=== PATIENT | female | born 2000 | race African-American/Black ===

== ENCOUNTER 2021-04-01 15:50 | Emergency (ER) | payer MEDICAID, OTHER ==
[~2021-04-01] VITALS: Ht 167.6 cm; Wt 95.0 kg
[2021-04-01 18:05] VITALS: BP 126/84
[2021-04-01 19:07] LABS: CHLORIDE 105 mEq/L (98-107)
[2021-04-01 19:08] LABS: BASOPHILS % 0.5 % (0.0-2.0); EOSINOPHILS % 0.9 % (0.0-5.0); HEMATOCRIT. 32.9 % (36.0-48.0); HEMOGLOBIN. 10.6 g/dL (12.0-16.0); LYMPHOCYTES % 21.2 % (20.0-50.0); MEAN CORPUSCULAR HEMOGLOBIN 23.8 pg (28.0-32.0); MEAN CORPUSCULAR VOLUME 74.2 fL (81.0-99.0); MEAN PLATELET VOLUME 9.5 fl (7.4-10.4); MONOCYTES % 8.2 % (2.0-8.0); NEUTROPHILS % 69.2 % (40.0-76.0); PLATELET 227 x1000/uL (130-400); RED BLOOD CELL COUNT 4.44 mill/uL (4.2-5.4); RED CELL DISTRIBUTION WIDTH 16.7 % (11.6-14.6)
[2021-04-01 19:31] LABS: B-HCG QUANTITATIVE 10892 mIU/mL (<3)
== END 2021-04-01 22:07 | disposition left against medical advice (07) ==
LOC: ER 15:50
DX: O20.9 Hemorrhage in early pregnancy, unspecified (principal); O26.891 Other specified pregnancy related conditions, first trimester; R10.30 Lower abdominal pain, unspecified; Z3A.01 Less than 8 weeks gestation of pregnancy
CPT/HCPCS: 36415; 76801; 80053; 81025; 84702; 85025; 86850; 86900; 99284

== ENCOUNTER 2021-06-11 23:22 | Emergency (ER) | payer MEDICAID ==
[~2021-06-11] VITALS: Ht 167.6 cm; Wt 92.6 kg
[2021-06-11] MEDS ORDERED: VISCOUS LIDOCAINE 2% 15 ML UDC PO STA (23:36)
[2021-06-11] MEDS ORDERED: MAGNESIUM/ALUMINUM HYDROXIDE/SIMETHICONE 30ML UDC PO STA (23:36)
[2021-06-12 00:56] LABS: BASOPHILS % 0.1 % (0.0-2.0); EOSINOPHILS % 1.4 % (0.0-5.0); HEMATOCRIT. 33.3 % (36.0-48.0); HEMOGLOBIN. 10.5 g/dL (12.0-16.0); LYMPHOCYTES % 14.7 % (20.0-50.0); MEAN CORPUSCULAR HEMOGLOBIN 23.6 pg (28.0-32.0); MEAN CORPUSCULAR VOLUME 74.8 fL (81.0-99.0); MEAN PLATELET VOLUME 9.9 fl (7.4-10.4); MONOCYTES % 6.5 % (2.0-8.0); NEUTROPHILS % 77.3 % (40.0-76.0); PLATELET 176 x1000/uL (130-400); RED BLOOD CELL COUNT 4.44 mill/uL (4.2-5.4); RED CELL DISTRIBUTION WIDTH 15.2 % (11.6-14.6)
[2021-06-12 01:02] LABS: CHLORIDE 107 mEq/L (98-107)
[2021-06-12 01:04] LABS: ETHANOL BLOOD < 10 mg/dL
[2021-06-12 01:17] LABS: CLARITY URINE CLOUDY (CLEAR); COLOR URINE YELLOW (YELLOW); KETONES URINE NEGATIVE (NEGATIVE); LEUKOCYTE ESTERASE URINE TRACE (NEGATIVE); NITRITE URINE NEGATIVE (NEGATIVE); OCCULT BLOOD URINE NEGATIVE (NEGATIVE); PH URINE 5.5 (4.5-8.0); PROTEIN URINE NEGATIVE (NEGATIVE); SPECIFIC GRAVITY URINE 1.007 (1.005-1.030); UROBILINOGEN URINE 0.2 E.U./dL (0.2-1.0)
[2021-06-12 01:28] LABS: B-HCG QUANTITATIVE 15007 mIU/mL (<3)
[2021-06-12 01:42] LABS: *AMPHETAMINES SCREEN URINE NEGATIVE (NEGATIVE); *BARBITURATES SCREEN URINE NEGATIVE (NEGATIVE); *BENZODIAZEPINES SCREEN URINE NEGATIVE (NEGATIVE); *COCAINE SCREEN URINE NEGATIVE (NEGATIVE)
[2021-06-12 01:43] LABS: METHADONE URINE SCREEN NEGATIVE (NEGATIVE); OPIATES URINE SCREEN NEGATIVE (NEGATIVE); PHENCYCLIDINE URINE SCREEN NEGATIVE (NEGATIVE)
[2021-06-12 01:49] LABS: CANNABINOID URINE SCREEN PRESUMTIVE POSITIVE (NEGATIVE)
[2021-06-12] MEDS ORDERED: CEPH500T MT (02:30)
[2021-06-12 02:39] VITALS: BP 121/78
[2021-06-12] MEDS ORDERED: CEPHALEXIN 250MG CAPSULE PO NR (03:00)
== END 2021-06-12 02:43 | disposition home or self-care (01) ==
LOC: ER 23:22
DX: O9A.212 Injury, poisoning and certain other consequences of external causes complicating pregnancy, second trimester (principal); T54.3X1A Toxic effect of corrosive alkalis and alkali-like substances, accidental (unintentional), initial encounter; R10.84 Generalized abdominal pain; R03.0 Elevated blood-pressure reading, without diagnosis of hypertension; Z3A.16 16 weeks gestation of pregnancy; Y92.010 Kitchen of single-family (private) house as the place of occurrence of the external cause
CPT/HCPCS: 36415; 76805; 80053; 80305; 80307; 80320; 80329; 81003; 84702; 85025; 99284; G0480

== ENCOUNTER 2021-12-18 08:13 | Emergency (ER) | payer MEDICAID ==
[~2021-12-18] VITALS: Ht 167.6 cm; Wt 92.0 kg
[~2021-12-18 08:13] MED LIST: FERR325T6 MT; IBUP-2030 PO; PREN1TAB78 MT
[2021-12-18 10:29] LABS: HEMATOCRIT. 34.7 % (36.0-48.0); HEMOGLOBIN. 10.6 g/dL (12.0-16.0); MEAN CORPUSCULAR HEMOGLOBIN 22.8 pg (28.0-32.0); MEAN CORPUSCULAR VOLUME 74.5 fL (81.0-99.0); PLATELET 246 x1000/uL (130-400); RED BLOOD CELL COUNT 4.65 mill/uL (4.2-5.4); RED CELL DISTRIBUTION WIDTH 15.6 % (11.6-14.6)
[2021-12-18 10:39] LABS: CHLORIDE 103 mEq/L (98-107)
[2021-12-18 10:51] LABS: HCG SCREEN NEGATIVE
[2021-12-18 10:58] LABS: PLATELET ESTIMATE NORMAL
[2021-12-18] MEDS: KETOROLAC 15MG/ML VIAL IV NR ×2 (13:40→15:18)
[2021-12-18] MEDS ORDERED: IOHEXOL-350 100 ML BOTTLE ONE (14:41)
[2021-12-18] MEDS ORDERED: CLINDAMYCIN 900 MG in DEXTROSE 5% WATER 50 ML IV ONE (14:45)
[2021-12-18] MEDS ORDERED: CLINDAMYCIN IN 0.9 % SOD CHLOR 50 ML IV NR (14:45)
[2021-12-18] MEDS ORDERED: DEXAMETHASONE 10 MG/ML VIAL PO NR (14:45)
[2021-12-19 07:09] VITALS: BP 151/77
== END 2021-12-19 07:40 | disposition short-term general hospital (02) ==
LOC: ER 08:13
DX: J36 Peritonsillar abscess (principal); Z88.0 Allergy status to penicillin
CPT/HCPCS: 36415; 70450; 70486; 70498; 80048; 84703; 85025; 87426; 96365; 96375; 99285; C9803; J1100; J1885; J3490; Q9967

== ENCOUNTER 2022-03-01 10:50 | Emergency (ER) | payer MEDICAID ==
[~2022-03-01] VITALS: Ht 167.6 cm; Wt 97.0 kg
[2022-03-01] MEDS ORDERED: CLINDAMYCIN 600 MG in DEXTROSE 5% WATER 50 ML IV ONE (13:45)
[2022-03-01 14:01] LABS: BASOPHILS % 0.2 % (0.0-2.0); EOSINOPHILS % 0.3 % (0.0-5.0); LYMPHOCYTES % 9.2 % (20.0-50.0); MEAN CORPUSCULAR HEMOGLOBIN 23.3 pg (28.0-32.0); MEAN PLATELET VOLUME 10.8 fl (7.4-10.4); MONOCYTES % 6.1 % (2.0-8.0); NEUTROPHILS % 84.2 % (40.0-76.0); PLATELET 75 x1000/uL (130-400); RED BLOOD CELL COUNT 2.32 mill/uL (4.2-5.4); RED CELL DISTRIBUTION WIDTH 15.3 % (11.6-14.6)
[2022-03-01 14:14] LABS: HEMATOCRIT. 18.1 % (36.0-48.0); HEMOGLOBIN. 5.4 g/dL (12.0-16.0)
[2022-03-01] MEDS ORDERED: CLINDAMYCIN 600MG PREMIX 50 ML IV NR (15:00)
[2022-03-01 15:02] LABS: CHLORIDE 107 mEq/L (98-107)
[2022-03-01 15:05] LABS: HCG SCREEN NEGATIVE
[2022-03-01] MEDS ORDERED: DEXAMETHASONE 4MG/ML 1ML VIAL IV ONE (19:15)
[2022-03-01] MEDS ORDERED: KETOROLAC 15MG/ML VIAL IV ONE (19:15)
[2022-03-01] MEDS ORDERED: MAGNESIUM/ALUMINUM HYDROXIDE/SIMETHICONE 30ML UDC PO PRN (20:30)
[2022-03-01] MEDS ORDERED: ACETAMINOPHEN 325MG TABLET PO PRN (20:30)
[2022-03-01] MEDS ORDERED: ONDANSETRON HCL 4MG/2ML INJ IV PRN (20:30)
[2022-03-01] MEDS ORDERED: HYDRALAZINE 20MG/ML VIAL IV PRN (20:30)
[2022-03-01] MEDS ORDERED: CLONIDINE 0.1MG TABLET PO PRN (20:30)
[2022-03-01] MEDS ORDERED: IPRATROPIUM/ALBUTEROL 0.5-3(2.5)MG/3ML NEB HHN PRN (20:30)
[2022-03-01] MEDS ORDERED: DIPHENHYDRAMINE 50MG/ML VIAL IV PRN (20:30)
[2022-03-01] MEDS ORDERED: GUAIFENESIN 200MG/10ML SUGAR FREE UDC PO PRN (20:30)
[2022-03-01] MEDS ORDERED: DOCUSATE SODIUM 100MG CAPSULE PO PRN (20:30)
[2022-03-01] MEDS ORDERED: POTASSIUM CHLORIDE 20MEQ TABLET SR PO NR (20:30)
[2022-03-01] MEDS ORDERED: HYDROCODONE/ACETAMINOPHEN 5/325MG TABLET PO PRN (20:30)
[2022-03-01] MEDS ORDERED: NALOXONE HCL 0.4MG/ML VIAL IV PRN (20:45)
[2022-03-01] MEDS ORDERED: KETOROLAC 15MG/ML VIAL IV NR (21:15)
[2022-03-01] MEDS ORDERED: DEXAMETHASONE 10 MG/ML VIAL IV NR (21:15)
[2022-03-01] MEDS ORDERED: DEXAMETHASONE 4MG/ML 1ML VIAL IV NR (21:15)
[2022-03-01] MEDS ORDERED: SODIUM CHLORIDE 0.9% INJ 3ML FLUSH IVF SCH (22:00)
[2022-03-01 22:40] VITALS: BP 113/58
[2022-03-01] MEDS ORDERED: IOHEXOL-300 100 ML BOTTLE ONE (23:20)
== END 2022-03-01 23:13 | disposition left against medical advice (07) ==
LOC: ER 11:26 → EDBEDREQSVC 18:45 → EDBEDREQTM 18:45 → EDBEDREQ 18:45 → ER 23:13 → ENRESERV 03-02 02:43 → CANBEDREQ 03-02 20:25
DX: B34.9 Viral infection, unspecified (principal); J36 Peritonsillar abscess; Z88.0 Allergy status to penicillin; Z91.013 Allergy to seafood
CPT/HCPCS: 36415; 70360; 70491; 80048; 84703; 85025; 86850; 86900; 86901; 86920; 87070; 87430; 96365; 96366; 96375; 99285; J1100; J1885; J3490; Q9967; J7060; P9016

== ENCOUNTER 2025-01-01 19:17 | Emergency (ER) | payer MEDICAID, OTHER ==
[~2025-01-01] VITALS: Ht 167.6 cm; Wt 109.0 kg
[2025-01-01 19:32] VITALS: O2SAT 98
[2025-01-01 20:10] LABS: BASOPHILS % 0.3 % (0.0-2.0); DIFFERENTIAL COMMENT 0; EOSINOPHILS % 1.3 % (0.0-5.0); HEMATOCRIT. 30.5 % (36.0-48.0); HEMOGLOBIN. 9.7 g/dL (12.0-16.0); LYMPHOCYTES % 11.1 % (20.0-50.0); MEAN CORPUSCULAR HEMOGLOBIN 24.3 pg (28.0-32.0); MEAN CORPUSCULAR VOLUME 76.2 fL (81.0-99.0); MEAN PLATELET VOLUME 10.4 fl (7.4-10.4); MONOCYTES % 7.1 % (2.0-8.0); NEUTROPHILS % 80.2 % (40.0-76.0); PLATELET 190 x1000/uL (130-400); RED CELL DISTRIBUTION WIDTH 14.1 % (11.6-14.6); WHITE BLOOD COUNT 12.6 x1000/uL (4.5-11.0)
[2025-01-01 20:19] LABS: CHLORIDE 105 mEq/L (98-107); POTASSIUM 3.3 mEq/L (3.5-5.1); SODIUM 137 mEq/L (136-145)
[2025-01-01 20:20] LABS: CALCIUM 9.3 mg/dL (8.7-10.4); CARBON DIOXIDE 23 mEq/L (21-32)
[2025-01-01 20:25] LABS: CREATININE 0.6 mg/dL (0.6-1.0); GLUCOSE 99 mg/dL (70-105); INR 0.9; PROTHROMBIN TIME 9.8 sec (9.6-11.0); UREA NITROGEN BLOOD 6 mg/dL (9-23)
[2025-01-01 21:15] VITALS: BP 111/60; PULSE 82; RESP 18; TEMP 36.9; O2SAT 99
[2025-01-01 21:59] LABS: CLARITY URINE CLEAR (CLEAR); COLOR URINE YELLOW (YELLOW); GLUCOSE URINE NEGATIVE (NEGATIVE); KETONES URINE TRACE (NEGATIVE); LEUKOCYTE ESTERASE URINE NEGATIVE (NEGATIVE); NITRITE URINE NEGATIVE (NEGATIVE); OCCULT BLOOD URINE NEGATIVE (NEGATIVE); PH URINE 6.5 (4.5-8.0); PROTEIN URINE TRACE (NEGATIVE); SPECIFIC GRAVITY URINE 1.024 (1.005-1.030)
[2025-01-01 22:24] LABS: BACTERIA URINE 1+; RBC URINE 0-2 /hpf (0-2); SQUAMOUS EPITHELIAL CELL URINE 2+ /lpf (RARE/1+); WBC URINE 0-2 /hpf (0-2)
== END 2025-01-01 21:55 | disposition short-term general hospital (02) ==
LOC: ER 19:17
DX: O26.893 Other specified pregnancy related conditions, third trimester (principal); S33.5XXA Sprain of ligaments of lumbar spine, initial encounter; R10.2 Pelvic and perineal pain; Z88.0 Allergy status to penicillin; Z3A.31 31 weeks gestation of pregnancy; V89.2XXA Person injured in unspecified motor-vehicle accident, traffic, initial encounter; Y93.89 Activity, other specified; Y92.89 Other specified places as the place of occurrence of the external cause; Y99.8 Other external cause status
CPT/HCPCS: 36415; 76805; 80048; 81003; 85025; 86850; 86900; 99291